=== PATIENT | female | born 1980 | race Caucasian/White ===

== ENCOUNTER 2025-03-15 14:53 | Emergency (ER) | payer OTHER, SELFPAY ==
[2025-03-15 15:01] VITALS: BP 111/75; BMI 20.2
--- NOTE | 2025-03-15 15:27 | ED.GENMED ---
History of Present Illness
General
Chief Complaint: Withdrawal Symptoms
Source: patient and other (Records from present)
Time Seen by Provider: 03/15/25 15:13
History of Present Illness
History of Present Illness:
44-year-old female brought to the emergency room from [facility] for evaluation due to nausea vomiting abdominal discomfort. Patient was incarcerated 4 days ago. She is on methadone maintenance therapy for opiate use disorder. Her last
dose of methadone was March 11. Presumably due to withdrawal the patient's been suffering from nausea and vomiting. She has not kept any fluids down for quite some time. They attempted to place an IV at the assisted but were unsuccessful.
Currently the patient is complaining of nausea and abdominal discomfort.
Phy Exam
Physical Exam
Physical Exam:
General: Awake, Alert, Oriented X3. No acute distress but appears to feel unwell
Vitals: unremarkable
Head: Atraumatic
Eyes: Pupils equal, EOMI
Throat: Airway intact, no exudates, mildly dry mucous
Neck: Trachea midline
Lungs: Clear and equal b/l
Heart: Regular rate, no murmurs
Abd: Soft, mildly diffusely tender,, No pulsatile mass
Neuro: Nonfocal
Skin: Warm, dry, no rash
Extremities: pulses equal b/l, no edema
Course
Orders/Labs/Results
Orders:
Orders
03/15/25 15:25
0.9% Sodium Chloride 1000 ml [Nss] 1,000 ml IV BOLUS
Ondansetron Injectable [Zofran] 4 mg IV NOW STA
03/15/25 15:26
Electrocardiogram (*1) Urgent
Reason for Study: QTc Monitoring
EKG- Treatment ONCE
03/15/25 17:00
Complete Blood Count/With Diff Urgent
Comprehensive Metabolic Panel Urgent
Lipase Urgent
Magnesium Urgent
Prothrombin Time Urgent
03/15/25 17:47
Methadone HCl [Methadone 100 mg/10 ml] 40 mg PO NOW STA
Abnormal Lab Results
03/15/25
17:00
WBC 4.4 L 10^3/uL
(4.8-10.8)
RBC 5.56 H 10^6/uL
(4.20-5.40)
MCV 72.3 L fL
(81.0-99.0)
MCH 23.2 L pg
(27.0-31.0)
MCHC 32.1 L g/dL
(33.0-37.0)
RDW 18.4 H %
(11.5-14.5)
Absolute Lymphs (auto) 0.5 L 10^3/uL
(1.2-3.4)
Absolute Monos (auto) 0.8 H 10^3/uL
(0.1-0.6)
Lymphocytes % 11.7 L %
(20.5-51.1)
Monocytes % 18.6 H %
(1.7-9.3)
BUN 19 H mg/dl
(7-17)
Total Protein 9.1 H g/dl
(6.3-8.2)
03/15/25 17:00
03/15/25 17:00
Vital Signs
Initial and Last Documented VS:
Initial Vital Signs
Temp Pulse Resp BP Pulse Ox
98.5 F 90 16 111/75 99
03/15/25 15:01 03/15/25 15:01 03/15/25 15:01 03/15/25 15:01 03/15/25 15:01
Last Documented Vital Signs
Temp Pulse Resp BP Pulse Ox
98.5 F 99 18 120/78 96
03/15/25 15:01 03/15/25 19:23 03/15/25 19:23 03/15/25 19:05 03/15/25 19:05
MDM/Problems Addressed
Differential Diagnosis Includes:
Opiate withdrawal syndrome, dehydration, electrolyte abnormality, intra-abdominal pathology such as diverticulitis
MDM/Problems Addressed:
Patient presents with nausea, decreased appetite abdominal pain etc. Patient's last dose of methadone was 4 days ago. She states her typical dose is 255 mg a day. I communicated with our clinical pharmacist, Yakelin who will reach out to the
patient's methadone clinic. Pt states she goes to [facility] methadone clinic on [address] in [facility]. Yakelin called several times and faxed an authorization sheet without any response. Pharmacy protocol in the situation is to give only 40 mg.
This was ultimately given and the patient reported her symptoms greatly improved. She no longer had abdominal pain and was anxious to eat. Had initially ordered a CT of the abdomen given her nausea vomiting and abdominal pain but now that it has
resolved with the methadone I do not believe we need to follow through with this. CT was canceled. Patient's labs are otherwise reassuring.
*Pulse Oximetry
SaO2: 99
Oxygen Mode of Delivery: Room air
Patient hypoxic: no
*EKG
Interpreted by ED Provider?: Yes
Interpretation: normal
Heart Rate: 83
Rate: normal
Rhythm: sinus
[place]: normal axis
Interval: normal interval (QTc less than 500)
QRS Pattern: normal QRS
Ischemia: no ischemia
*Critical Care Note
Total Time (30-74mins, 75-104mins- exclusive of procedures): Not Applicable
Patient Management
Social determinants of health affecting care: Living situation, Substance abuse and Financial situation
ED Attending Note
-
Portions of this chart may have been created with voice recognition software.� Occasional wrong word or��sound alike� substitutions may have occurred due to the inherent limitations of voice recognition software.
Discharge Plan
Departure
Patient Disposition: [facility]
Date of Disposition: 03/15/25
Time of Disposition: 19:12
Condition: Good
Discharge Problem:
Opiate withdrawal
Instructions: Opioid withdrawal - ED (DC)
Referrals:
[facility] [Family Provider, General]
Activity Restrictions/Additional Instructions:
Adriana is feeling better after receiving 40 mg of methadone here. We were unable to verify her dose from her clinic. We called several times but never received a return phone call nor did they signed and returned our faxed verification form.
Symptoms resolved after the methadone. Her labs are unremarkable. Therefore she is stable for discharge back to the assisted.
Interventions
Interventions:
*Risk Screen - Suicide Last Done: 03/15/25 15:01
*General Assessment Last Done: 03/15/25 15:01
*Neglect/Abuse Screening Last Done: 03/15/25 17:00
*ED- Fall Risk Assessment Last Done: 03/15/25 15:01
*ED COVID-19 Vaccine History Last Done: 03/15/25 15:01
*Nursing Disposition Last Done: 03/15/25 19:19
ED- Neurological Assessment Last Done: 03/15/25 16:14
ED-Psychological Assessment Last Done: 03/15/25 16:14
Discharge Date and Time
Discharge Date/Time: 03/15/25 19:31
Print Language: IRAQI
--- NOTE | 2025-03-15 15:27 | EDRN ---
Dr. Vasquez in to see pt.
[2025-03-15 16:00] VITALS: BP 110/68
[2025-03-15] MEDS: NSS 1000 IV (17:03)
[2025-03-15] MEDS: ZOFRAN 4 MG IV (17:06)
[2025-03-15 17:10] VITALS: BP 126/84
[2025-03-15 17:13] LABS: Hematocrit 40.2 % (37.0-47.0); Hemoglobin 12.9 g/dL (12.0-16.0); Mean Corp Hgb Conc. 32.1 g/dL (33.0-37.0); Mean Corpuscular Volume 72.3 fL (81.0-99.0); Nucleated Red Blood Cells % 0 %; Platelet Count 347 10^3/uL (130-400); Red Cell Dist. Width 18.4 % (11.5-14.5)
[2025-03-15 17:21] LABS: INR 1.04; PT 13.9 Sec (11.4-14.6)
[2025-03-15 17:24] LABS: ALT (SGPT) 21 U/L (0-35); AST (SGOT) 29 U/L (14-36); Albumin 5.0 g/dl (3.5-5.0); Alkaline Phosphatase 87 U/L (38-126); Blood Urea Nitrogen 19 mg/dl (7-17); Calcium 10.1 mg/dl (8.4-10.2); Carbon Dioxide 28 mmol/L (22-30); Chloride 98 mmol/L (98-107); Estimated Creatinine Clearance 93 ml/min; Glucose 95 mg/dl (70-99); Lipase 39 U/L (23-300); Magnesium 1.9 mg/dl (1.6-2.3); Potassium 4.3 mmol/L (3.5-5.1); Sodium 137 mmol/L (135-145); Total Protein 9.1 g/dl (6.3-8.2); eGFR > 60.00
[2025-03-15] MEDS: METHADONE 100 MG/10 ML 40 MG PO (17:59)
[2025-03-15 19:05] VITALS: BP 120/78
== END 2025-03-15 19:31 ==
LOC: EMR 14:53
PROVIDERS: EMERGENCY PHYSICIAN Emergency Medicine
DX: F11.23 Opioid dependence with withdrawal (principal); R11.2 Nausea with vomiting, unspecified; R10.9 Unspecified abdominal pain
CPT/HCPCS: 96374; 96361; 99284; 80053; 83690; 83735; 85025; 85610; 93005